=== PATIENT | male | born 1970 | race African-American/Black ===

== ENCOUNTER 2023-02-02 17:16 | Emergency (ER) | payer OTHER ==
[~2023-02-02] VITALS: Ht 182.9 cm; Wt 97.5 kg
[2023-02-02 21:39] LABS: HEMATOCRIT 39.6 % (39.0-48.0); HEMOGLOBIN 13.7 g/dL (13-16.00); MEAN CELL VOLUME 82.1 fL (80.0-100.00); MEAN CORPUSCULAR HEMOGLOBIN 28.5 pg (27.00-32.0); MEAN CORPUSCULAR HGB CONC 34.7 g/dl (32.0-36.0); PLATELET COUNT 213 K/uL (150-450); RED BLOOD COUNT 4.82 M/uL (4.00-6.00); RED CELL DISTRIBUTION WIDTH 14.5 % (11.5-14.5)
[2023-02-02 22:16] LABS: ALBUMIN 3.7 gm/dL (3.4-5.0); BILIRUBIN TOTAL 0.3 mg/dL (0.3-1.2); CALCIUM 8.8 mg/dL (8.5-10.1); CREATININE SERUM 0.8 mg/dL (0.70-1.30); GFR 101.91; GLOBULINA 3.2 G/DL (2.4-3.5); POTASSIUM 4.19 mEq/L (3.5-5.1); TOTAL PROTEIN 6.9 gm/dL (6.4-8.2)
== END 2023-02-03 00:15 | disposition home or self-care (01) ==
LOC: ER 17:16 → EDBD 17:16 → ER 17:30
PROVIDERS: Emergency Medicine
DX: R07.9 Chest pain, unspecified (principal); Z88.6 Allergy status to analgesic agent; Z20.822 Contact with and (suspected) exposure to COVID-19

== ENCOUNTER 2024-09-07 13:07 | Emergency (ER) | payer OTHER ==
[~2024-09-07] VITALS: Ht 182.9 cm; Wt 97.5 kg
[2024-09-07] MEDS ORDERED: ACETAMINOPHEN 500 MG GEL..CAP PO STA (14:32)
[2024-09-07] MEDS ORDERED: CEFTRIAXONE SODIUM 1,000 MG VIAL IM STA (14:32)
== END 2024-09-07 14:47 | disposition home or self-care (01) ==
LOC: ER 13:07
DX: J03.80 Acute tonsillitis due to other specified organisms (principal); Z88.6 Allergy status to analgesic agent

== ENCOUNTER 2024-09-21 20:09 | Emergency (ER) | payer OTHER ==
[~2024-09-21] VITALS: Ht 182.9 cm; Wt 97.5 kg
[2024-09-21] MEDS ORDERED: 0.9 % SODIUM CHLORIDE 1,000 ML IV ONE (21:15)
[2024-09-21] MEDS ORDERED: HYOSCYAMINE SULFATE 0.125 MG TAB.SUBL SL ONE (21:15)
[2024-09-21] MEDS ORDERED: LACTOBACILLUS ACIDOPHILUS 1 CAP CAP PO ONE ×2 (21:15→21:23)
[2024-09-21] MEDS ORDERED: ONDANSETRON HCL 2 MG/ML VIAL IV ONE (21:15)
[2024-09-21] MEDS ORDERED: FAMOTIDINE/PF 20 MG/2 ML VIAL IV ONE (21:15)
[2024-09-21] MEDS ORDERED: HYOSCYAMINE SULFATE 0.125 MG TAB.SUBL ONE (21:22)
[2024-09-21] MEDS ORDERED: ONDANSETRON HCL 2 MG/ML VIAL ONE (21:22)
[2024-09-21] MEDS ORDERED: FAMOTIDINE/PF 20 MG/2 ML VIAL ONE (21:23)
[2024-09-21 22:10] LABS: URINE APPEARANCE Clear; URINE BILIRRUBIN Negative (NEGATIVE); URINE BLOOD Moderate; URINE COLOR Yellow; URINE GLUCOSE Negative (NEGATIVE); URINE KETONE Negative (NEGATIVE); URINE LEUKOCYTE Negative; URINE NITRATE Negative; URINE PROTEIN Negative (NEGATIVE); URINE UROBILINOGEN 0.2 E.U./dl
[2024-09-21 22:10] LABS: BASO % 0.4 % (0.1-1.2); EOS # 0.21 (0.04-0.54); EOS % 2.8 % (0.7-7.0); LYMPH # 1.97 (1.18-3.74); LYMPH % 26.6 % (19.3-53.1); MEAN PLATELET VOLUME 10.70 fl (9.4-12.4); MONO # 0.70 (0.24-0.82); MONO % 9.4 % (4.7-12.5); NEUT # 4.44 (1.56-6.13); NEUT % 60.0 % (34.0-71.1); RED CELL DISTRIBUTION WIDTH 13.2 % (11.6-14.4)
[2024-09-21 22:11] LABS: URINE RBC 21.5 uL (0.0-20.8)
[2024-09-21 22:16] LABS: URINE BACTERIA 3.6 uL (0.0-1933); URINE CAST 0.00 uL (0.0-1.40); URINE EPITHELIAL CELLS 0.6 uL (0.0-38.8); URINE WBC 1.3 uL (0.0-23.2)
[2024-09-21 22:31] LABS: ALT/SGPT 33.0 U/L (12-78); AST/SGOT 25.0 U/L (15-37); BILIRUBIN TOTAL 0.3 mg/dL (0.3-1.2); BUN CREA RATIO 21.0 (7.0-25.0); CREATININE SERUM 0.8 mg/dL (0.70-1.30); GFR 101.12; GLOBULINA 3.7 G/DL (2.4-3.5); GLUCOSE FASTING 89.0 mg/dL (65-100); OSMOLALITY SERUM 288.0 MOSM/KG (275-295)
[2024-09-21] MEDS ORDERED: ONDANSETRON ODT8 MG SL (22:37)
[2024-09-21] MEDS ORDERED: INTESTINEX680 M1 PO (22:37)
[2024-09-21] MEDS ORDERED: LEVSIN0.125 MG PO (22:37)
[2024-09-21] MEDS ORDERED: PEPCID AC20 MG PO (22:37)
== END 2024-09-21 22:51 ==
LOC: ER 20:09
PROVIDERS: General Practice
DX: K52.9 Noninfective gastroenteritis and colitis, unspecified (principal); R10.9 Unspecified abdominal pain; Z88.6 Allergy status to analgesic agent

== ENCOUNTER 2025-01-22 09:31 | Emergency (ER) | payer OTHER ==
[~2025-01-22] VITALS: Ht 182.9 cm; Wt 102.1 kg
[~2025-01-22 09:31] MED LIST: INTESTINEX680 M1 PO; LEVSIN0.125 MG PO; ONDANSETRON ODT8 MG SL; PEPCID AC20 MG PO
[2025-01-22] MEDS ORDERED: IPRATROPIUM BROMIDE 0.5 MG/2.5 ML AMPUL.NEB IH STA (10:37)
[2025-01-22] MEDS ORDERED: DEXAMETHASONE SODIUM PHOSPHATE 4 MG/ML VIAL IV STA (10:37)
[2025-01-22] MEDS ORDERED: ALBUTEROL SULFATE 3 ML/2.5 MG AMPUL.NEB IH SCH (10:45)
[2025-01-22] MEDS ORDERED: 0.9 % SODIUM CHLORIDE 1,000 ML IV SCH (10:45)
[2025-01-22] MEDS ORDERED: DEXAMETHASONE SODIUM PHOSPHATE 4 MG/ML VIAL ONE (10:54)
[2025-01-22 11:40] LABS: BASO % 0.3 % (0.1-1.2); EOS # 0.24 (0.04-0.54); EOS % 2.8 % (0.7-7.0); LYMPH # 1.63 (1.18-3.74); LYMPH % 18.8 % (19.3-53.1); MEAN PLATELET VOLUME 10.40 fl (9.4-12.4); MONO # 0.72 (0.24-0.82); MONO % 8.3 % (4.7-12.5); NEUT # 6.00 (1.56-6.13); NEUT % 69.2 % (34.0-71.1); RED CELL DISTRIBUTION WIDTH 13.2 % (11.6-14.4)
[2025-01-22 11:56] LABS: ERYTHROCYTE SEDIMENTATION RATE 23 mm/hr (0-20)
[2025-01-22 12:02] LABS: INR 1.06
[2025-01-22 12:20] LABS: ALT/SGPT 26.0 U/L (12-78); AST/SGOT 20.0 U/L (15-37); BILIRUBIN TOTAL 0.51 mg/dL (0.3-1.2); BUN CREA RATIO 17.0 (7.0-25.0); CREATININE SERUM 0.92 mg/dL (0.70-1.30); GFR 86.06; GLOBULINA 3.6 G/DL (2.4-3.5); GLUCOSE FASTING 95.0 mg/dL (65-100); OSMOLALITY SERUM 280.0 MOSM/KG (275-295)
[2025-01-22 13:27] LABS: COVID-19 AG NEGATIVE (NEGATIVE)
[2025-01-22] MEDS ORDERED: CEPHALEXIN500 MG PO (15:07)
== END 2025-01-22 18:37 | disposition home or self-care (01) ==
LOC: ER 09:32
PROVIDERS: Physician Assistant Medical
DX: J06.9 Acute upper respiratory infection, unspecified (principal); L03.012 Cellulitis of left finger; Z20.822 Contact with and (suspected) exposure to COVID-19; Z88.6 Allergy status to analgesic agent